=== PATIENT | female | born 1945 | race African-American/Black ===

== ENCOUNTER 2017-01-18 15:13 | Emergency (ER) | payer MEDICARE, MEDICAID ==
[~2017-01-18] VITALS: Ht 172.7 cm; Wt 70.0 kg
[2017-01-18] MEDS ORDERED: HYDROCODONE/ACETAMINOPHEN 5/325MG TABLET PO ONE (16:45)
[2017-01-18 17:22] LABS: BASOPHILS % 0.2 % (0.0-2.0); EOSINOPHILS % 0.1 % (0.0-5.0); HEMATOCRIT. 45.7 % (36.0-48.0); HEMOGLOBIN. 14.5 g/dL (12.0-16.0); LYMPHOCYTES % 10.4 % (20.0-50.0); MEAN CORPUSCULAR HEMOGLOBIN 25.9 pg (28.0-32.0); MEAN CORPUSCULAR VOLUME 81.5 fL (81.0-99.0); MEAN PLATELET VOLUME 8.1 fl (7.4-10.4); MONOCYTES % 13.3 % (2.0-8.0); PLATELET 197 x1000/uL (130-400); RED CELL DISTRIBUTION WIDTH 16.1 % (11.6-14.6)
[2017-01-18 17:28] LABS: CHLORIDE 98 mEq/L (98-107)
[2017-01-18 17:30] LABS: CARBON DIOXIDE 23 mEq/L (21-32)
[2017-01-18 17:35] LABS: CREATINE KINASE 691 IU/L (26-192)
[2017-01-18 17:38] LABS: TROPONIN I < 0.02 ng/mL (0.00-0.04)
[2017-01-18 19:30] LABS: INR 1.2; PARTIAL THROMBOPLASTIN TIME 25.9 sec (24.0-34.0); PROTHROMBIN TIME 12.3 sec
[2017-01-18 19:45] VITALS: BP 120/83
== END 2017-01-18 19:50 | disposition home or self-care (01) ==
LOC: ER 15:28
DX: G89.29 Other chronic pain (principal); M25.551 Pain in right hip; M25.552 Pain in left hip; R60.0 Localized edema; I10 Essential (primary) hypertension; Z88.0 Allergy status to penicillin; Z85.3 Personal history of malignant neoplasm of breast; Z96.642 Presence of left artificial hip joint
CPT/HCPCS: 36415; 71010; 73521; 80053; 82550; 82553; 83690; 83880; 84443; 84484; 85025; 85610; 85730; 93005; 93970; 93971; 99285

== ENCOUNTER 2017-01-26 14:52 | Inpatient (IN) | payer MEDICARE, MEDICAID ==
[~2017-01-26] VITALS: Ht 170.2 cm; Wt 96.8 kg
[2017-01-26] MEDS ORDERED: SODIUM CHLORIDE 0.9% 1,000 ML IV ONE ×2 (15:36→17:00)
[2017-01-26] MEDS ORDERED: NALOXONE HCL 0.4 MG/ML 1ML VIAL IV ONE (15:45)
[2017-01-26 16:10] LABS: HEMATOCRIT. 39.6 % (36.0-48.0); MEAN CORPUSCULAR HEMOGLOBIN 25.8 pg (28.0-32.0); MEAN CORPUSCULAR VOLUME 78.5 fL (81.0-99.0); MEAN PLATELET VOLUME 9.1 fl (7.4-10.4); PLATELET 215 x1000/uL (130-400); RED BLOOD CELL COUNT 5.04 mill/uL (4.2-5.4); RED CELL DISTRIBUTION WIDTH 15.8 % (11.6-14.6)
[2017-01-26 16:13] LABS: CHLORIDE 93 mEq/L (98-107)
[2017-01-26 16:14] LABS: INR 1.2; PROTHROMBIN TIME 12.8 sec
[2017-01-26 16:16] LABS: CARBON DIOXIDE 21 mEq/L (21-32)
[2017-01-26 16:48] LABS: PLATELET ESTIMATE NORMAL
[2017-01-26] MEDS ORDERED: HYDROMORPHONE HCL/PF 2MG/ML CPJ IV PRN (18:45)
[2017-01-26] MEDS ORDERED: ENOXAPARIN 40MG/0.4ML SYR SUBCUT SCH (18:45)
[2017-01-26] MEDS ORDERED: ONDANSETRON HCL 4MG/2ML VIAL IV PRN (18:45)
[2017-01-26] MEDS ORDERED: HYDROCODONE/ACETAMINOPHEN 5/325MG TABLET PO PRN (18:45)
[2017-01-26] MEDS ORDERED: LEVOFLOXACIN 500MG PREMIX 100 ML IV NR ×2 (19:00→21:00)
[2017-01-26 19:34] LABS: HEPATITIS B SURFACE ANTIGEN NEGATIVE
[2017-01-26] MEDS ORDERED: DEXT 5%/0.45% NACL KCL 20MEQ/L 1,000 ML IV SCH (20:00)
[2017-01-26 20:02] LABS: HEPATITIS B CORE AB IGM NEGATIVE
[2017-01-26 20:04] LABS: HEPATITIS A AB IGM NEGATIVE (NEGATIVE)
[2017-01-26 20:45] LABS: CLARITY URINE TURBID (CLEAR); COLOR URINE ORANGE (YELLOW); GLUCOSE URINE NEGATIVE (NEGATIVE); KETONES URINE NEGATIVE (NEGATIVE); LEUKOCYTE ESTERASE URINE 1+ (NEGATIVE); NITRITE URINE POSITIVE (NEGATIVE); OCCULT BLOOD URINE 3+ (NEGATIVE); PROTEIN URINE 1+ (NEGATIVE); SPECIFIC GRAVITY URINE 1.025 (1.005-1.030)
[2017-01-26] MEDS ORDERED: LEVOFLOXACIN 500MG PREMIX 100 ML IV SCH (20:45)
[2017-01-26] MEDS ORDERED: ENOXAPARIN 30MG/0.3ML SYR SUBCUT SCH (21:00)
[2017-01-26] MEDS ORDERED: METRONIDAZOLE 500 MG PREMIX 100 ML IV NR (21:00)
[2017-01-26] MEDS ORDERED: CEFTRIAXONE 1 G PREMIX 50 ML IV ONE (21:15)
[2017-01-26 23:18] LABS: CREATINE KINASE MB FRACTION 8.8 ng/mL (0.5-3.6); TROPONIN I < 0.02 ng/mL (0.00-0.04)
[2017-01-26] MEDS: METRONIDAZOLE 500 MG PREMIX 100 ML IV SCH (23:47)
[2017-01-27] VITALS (83 sets, daily range): BP systolic 80–142; BP diastolic 40–77
[2017-01-27] MEDS ORDERED: ACETAMINOPHEN 650MG SUPP PR NR (01:45)
[2017-01-27] MEDS ORDERED: DIATR MEGLU/DIATRIZOATE SOLN 30ML PO SCH (07:30)
[2017-01-27 08:05] LABS: BG BASE EXCESS -8.6 mmol/L (-2.0-2.0); BG DEOXYHEMOGLOBIN 1.5 % (0.0-5.0); BG FRACTION INSPIRED OXYGEN 28; BG HCO3 ACT 13.8 mmol/L (22.0-26.0); BG METHEMOGLOBIN 0.7 % (0.0-1.5); BG OXYGEN SATURATION 98.5 % (92.0-98.5); BG OXYHEMOGLOBIN 97.8 % (94.0-97.0); BG PH 7.434 (7.350-7.450); BG PO2 136.1 mmHg (75.0-100.0); BG SAMPLE SITE RIGHT BRACHIAL; BG TOTAL HEMOGLOBIN 11.5 g/dL (12.0-18.0); BG VENT MODE NASAL CANNULA
[2017-01-27] MEDS: IPRATROPIUM/ALBUTEROL 0.5-3(2.5)MG/3ML NEB HHN SCH ×4 (08:21→20:31)
[2017-01-27] MEDS: FAMOTIDINE 20MG/2ML VIAL IV SCH (08:27)
[2017-01-27] MEDS: METRONIDAZOLE 500 MG PREMIX 100 ML IV SCH ×3 (08:28→20:22)
[2017-01-27] MEDS: NOREPINEPHRINE 4 MG in DEXTROSE 5% WATER 250 ML IV PRN ×2 (09:48→16:51)
[2017-01-27 10:28] LABS: HEMATOCRIT. 33.5 % (36.0-48.0); HEMOGLOBIN. 10.8 g/dL (12.0-16.0); MEAN CORPUSCULAR HEMOGLOBIN 25.7 pg (28.0-32.0); MEAN CORPUSCULAR VOLUME 79.3 fL (81.0-99.0); MEAN PLATELET VOLUME 9.6 fl (7.4-10.4); PLATELET 158 x1000/uL (130-400); RED BLOOD CELL COUNT 4.23 mill/uL (4.2-5.4); RED CELL DISTRIBUTION WIDTH 16.2 % (11.6-14.6)
[2017-01-27 10:46] LABS: CARBON DIOXIDE 17 mEq/L (21-32); CHLORIDE 98 mEq/L (98-107); CREATINE KINASE MB FRACTION 6.2 ng/mL (0.5-3.6); TROPONIN I 0.02 ng/mL (0.00-0.04)
[2017-01-27] MEDS ORDERED: DEXT 5%/0.2% NACL KCL 20MEQ/L 1,000 ML IV SCH (11:00)
[2017-01-27 11:27] LABS: PHOSPHORUS 3.2 mg/dL (2.5-4.9)
[2017-01-27] MEDS: MORPHINE SULFATE 2 MG/ML CPJ (NOT FOR IM USE) IV PRN ×2 (11:58→16:57)
[2017-01-27] MEDS ORDERED: SODIUM ACETATE IV SCH (12:00)
[2017-01-27] MEDS ORDERED: DEXT IV SCH ×2 (12:00→12:30)
[2017-01-27] MEDS ORDERED: NACL KCL IV SCH ×2 (12:00→12:30)
[2017-01-27] MEDS ORDERED: SODIUM BICARBONATE IV SCH (12:30)
[2017-01-27 13:33] LABS: PLATELET ESTIMATE NORMAL
[2017-01-27] MEDS: LEVOFLOXACIN 250MG PREMIX 50 ML IV SCH (20:22)
[2017-01-27] MEDS: DEXT IV SCH (20:51)
[2017-01-27] MEDS: NACL IV SCH (20:51)
[2017-01-27] MEDS: POTASSIUM CHLORIDE IV SCH (20:51)
[2017-01-27] MEDS: SODIUM BICARBONATE IV SCH (20:51)
[2017-01-28] VITALS (98 sets, daily range): BP systolic 72–132; BP diastolic 32–74
[2017-01-28] MEDS: IPRATROPIUM/ALBUTEROL 0.5-3(2.5)MG/3ML NEB HHN SCH ×7 (00:18→23:40)
[2017-01-28] MEDS: NOREPINEPHRINE 4 MG in DEXTROSE 5% WATER 250 ML IV PRN ×2 (01:03→12:15)
[2017-01-28] MEDS: MORPHINE SULFATE 2 MG/ML CPJ (NOT FOR IM USE) IV PRN ×5 (01:07→23:34)
[2017-01-28] MEDS: POTASSIUM CHLORIDE IV SCH ×3 (04:53→20:31)
[2017-01-28] MEDS: NACL IV SCH ×3 (04:53→20:31)
[2017-01-28] MEDS: SODIUM BICARBONATE IV SCH ×3 (04:53→20:31)
[2017-01-28] MEDS: DEXT IV SCH ×3 (04:53→20:31)
[2017-01-28] MEDS: METRONIDAZOLE 500 MG PREMIX 100 ML IV SCH ×3 (05:04→21:01)
[2017-01-28 06:19] LABS: HEMATOCRIT. 29.9 % (36.0-48.0); HEMOGLOBIN. 9.9 g/dL (12.0-16.0); MEAN CORPUSCULAR HEMOGLOBIN 25.8 pg (28.0-32.0); MEAN CORPUSCULAR VOLUME 78.2 fL (81.0-99.0); MEAN PLATELET VOLUME 9.7 fl (7.4-10.4); PLATELET 103 x1000/uL (130-400); RED BLOOD CELL COUNT 3.82 mill/uL (4.2-5.4); RED CELL DISTRIBUTION WIDTH 16.1 % (11.6-14.6)
[2017-01-28 06:55] LABS: PLATELET ESTIMATE SLIGHTLY DECREASED
[2017-01-28 07:32] LABS: BG BASE EXCESS -1.2 mmol/L (-2.0-2.0); BG CARBOXYHEMOGLOBIN 0.6 % (0.5-1.5); BG DEOXYHEMOGLOBIN 1.1 % (0.0-5.0); BG FRACTION INSPIRED OXYGEN 28; BG METHEMOGLOBIN 0.7 % (0.0-1.5); BG OXYGEN SATURATION 98.9 % (92.0-98.5); BG OXYHEMOGLOBIN 97.6 % (94.0-97.0); BG PCO2 29.3 mmHg (35.0-45.0); BG PH 7.474 (7.350-7.450); BG PO2 130.3 mmHg (75.0-100.0); BG SAMPLE SITE RIGHT BRACHIAL; BG TOTAL HEMOGLOBIN 15.2 g/dL (12.0-18.0); BG VENT MODE NASAL CANNULA
[2017-01-28] MEDS: FAMOTIDINE 20MG/2ML VIAL IV SCH (09:45)
[2017-01-28] MEDS ORDERED: LIDOCAINE HCL 1% 20ML VIAL (Pyxis) INJ INFIL ONE (10:30)
[2017-01-28] MEDS ORDERED: VANCOMYCIN 1250MG in DEXTROSE 5% WATER 250ML IV SCH (11:00)
[2017-01-28] MEDS ORDERED: SODIUM CHLORIDE 0.9% 250 ML IV NR (11:15)
[2017-01-28] MEDS ORDERED: PHENYLEPHRINE 40 MG in DEXT 5% WATER 246 ML IV PRN (11:30)
[2017-01-28] MEDS ORDERED: SODIUM CHLORIDE 0.9% 250 ML IV ONE (11:30)
[2017-01-28] MEDS: CLINDAMYCIN 600 MG in DEXTROSE 5% WATER 50 ML IV SCH ×2 (11:48→20:32)
[2017-01-28] MEDS ORDERED: SODIUM CHLORIDE 0.9% 500 ML IV NR (12:00)
[2017-01-28] MEDS ORDERED: SODIUM CHLORIDE 0.9% 1000ML BAG (SEPSIS BOLUS) IV ONE (12:00)
[2017-01-28] MEDS ORDERED: SODIUM CHLORIDE 0.9% 500ML IV SOLN IV ONE (12:00)
[2017-01-28] MEDS ORDERED: DILTIAZEM HCL 5MG/ML 5ML VIAL IV SCH (12:30)
[2017-01-28] MEDS ORDERED: DIGOXIN 500MCG/2ML AMP IV SCH (13:00)
[2017-01-28] MEDS ORDERED: MAGNESIUM 1 G PREMIX 100 ML IV SCH (13:05)
[2017-01-28] MEDS ORDERED: DIGOXIN 500MCG/2ML AMP IV PRN (14:15)
[2017-01-28] MEDS: PHENYLEPHRINE 80 MG in DEXT 5% WATER 492 ML IV PRN ×2 (15:53→22:50)
[2017-01-28] MEDS: ACETAMINOPHEN 325MG TABLET PO PRN (18:59)
[2017-01-28] MEDS: LEVOFLOXACIN 250MG PREMIX 50 ML IV SCH (21:01)
[2017-01-28] MEDS: ENOXAPARIN 40MG/0.4ML SYR SUBCUT SCH (21:03)
[2017-01-29] VITALS (94 sets, daily range): BP systolic 82–124; BP diastolic 39–69
[2017-01-29] MEDS: SODIUM BICARBONATE IV SCH ×2 (03:05→08:56)
[2017-01-29] MEDS: POTASSIUM CHLORIDE IV SCH ×2 (03:05→08:56)
[2017-01-29] MEDS: DEXT IV SCH ×2 (03:05→08:56)
[2017-01-29] MEDS: NACL IV SCH ×2 (03:05→08:56)
[2017-01-29] MEDS: POLYVINYL ALCOHOL OPHTH DROPS 15ML BOTHEYE PRN (03:11)
[2017-01-29] MEDS: IPRATROPIUM/ALBUTEROL 0.5-3(2.5)MG/3ML NEB HHN SCH ×6 (03:47→23:39)
[2017-01-29] MEDS: CLINDAMYCIN 600 MG in DEXTROSE 5% WATER 50 ML IV SCH ×3 (04:04→20:10)
[2017-01-29] MEDS: METRONIDAZOLE 500 MG PREMIX 100 ML IV SCH ×3 (04:43→20:08)
[2017-01-29 05:38] LABS: HEMOGLOBIN. 9.9 g/dL (12.0-16.0); MEAN CORPUSCULAR HEMOGLOBIN 25.9 pg (28.0-32.0); MEAN CORPUSCULAR VOLUME 78.4 fL (81.0-99.0); RED BLOOD CELL COUNT 3.83 mill/uL (4.2-5.4); RED CELL DISTRIBUTION WIDTH 16.2 % (11.6-14.6)
[2017-01-29 06:02] LABS: CARBON DIOXIDE 22 mEq/L (21-32); CHLORIDE 92 mEq/L (98-107); PHOSPHORUS 1.7 mg/dL (2.5-4.9)
[2017-01-29 06:13] LABS: TROPONIN I 0.04 ng/mL (0.00-0.04)
[2017-01-29] MEDS: PHENYLEPHRINE 80 MG in DEXT 5% WATER 492 ML IV PRN ×3 (07:02→21:45)
[2017-01-29 07:38] LABS: BG BASE EXCESS 3.8 mmol/L (-2.0-2.0); BG DEOXYHEMOGLOBIN 1.7 % (0.0-5.0); BG FRACTION INSPIRED OXYGEN 32; BG HCO3 ACT 26.3 mmol/L (22.0-26.0); BG METHEMOGLOBIN 0.6 % (0.0-1.5); BG OXYGEN SATURATION 98.3 % (92.0-98.5); BG OXYHEMOGLOBIN 97.7 % (94.0-97.0); BG PCO2 32.3 mmHg (35.0-45.0); BG PH 7.528 (7.350-7.450); BG PO2 108.4 mmHg (75.0-100.0); BG SAMPLE SITE LEFT RADIAL; BG TOTAL HEMOGLOBIN 10.9 g/dL (12.0-18.0); BG VENT MODE NASAL CANNULA
[2017-01-29 07:48] LABS: PLATELET ESTIMATE DECREASED
[2017-01-29 07:49] LABS: MEAN PLATELET VOLUME 10.8 fl (7.4-10.4); PLATELET 54 x1000/uL (130-400)
[2017-01-29] MEDS: FAMOTIDINE 20MG/2ML VIAL IV SCH (08:24)
[2017-01-29] MEDS ORDERED: POTASSIUM PHOS M BASIC D BASIC IV SCH (09:00)
[2017-01-29] MEDS ORDERED: NACL IV SCH (09:00)
[2017-01-29] MEDS ORDERED: DEXT IV SCH (09:00)
[2017-01-29] MEDS: MORPHINE SULFATE 2 MG/ML CPJ (NOT FOR IM USE) IV PRN (09:14)
[2017-01-29] MEDS ORDERED: MAGNESIUM 2 G PREMIX 50 ML IV SCH (09:30)
[2017-01-29] MEDS ORDERED: VANCOMYCIN 1250MG in DEXTROSE 5% WATER 250ML IV SCH (11:00)
[2017-01-29] MEDS ORDERED: VANCOMYCIN 1 G PREMIX 200 ML IV SCH (11:00)
[2017-01-29] MEDS: BLOOD SUGAR DIAGNOSTIC STRIP TEST SCH ×3 (11:30→23:57)
[2017-01-29] MEDS: PANTOPRAZOLE SODIUM 40 MG/VIAL IV SCH (11:34)
[2017-01-29] MEDS: INSULIN LISPRO 100 UNITS/ML SUBCUT SCH ×2 (12:52→19:18)
[2017-01-29] MEDS: POTASSIUM-SODIUM PHOSPHATE POWDER PACKET NG SCH ×2 (13:26→20:07)
[2017-01-29] MEDS: BUDESONIDE 0.5MG/2ML NEB HHN SCH ×2 (15:11→20:11)
[2017-01-29] MEDS ORDERED: SODIUM HYPOCHLORITE 0.125% 473ML SOLUTION TOP SCH (18:30)
[2017-01-29] MEDS: DEXT 5%/0.45% NACL KCL 20MEQ/L 1,000 ML IV SCH (19:51)
[2017-01-29] MEDS: LEVOFLOXACIN 250MG PREMIX 50 ML IV SCH (20:08)
[2017-01-29] MEDS: ENOXAPARIN 40MG/0.4ML SYR SUBCUT SCH (21:00)
[2017-01-30] VITALS (103 sets, daily range): BP systolic 70–153; BP diastolic 41–79
[2017-01-30] MEDS: INSULIN LISPRO 100 UNITS/ML SUBCUT SCH ×4 (00:09→18:35)
[2017-01-30] MEDS: MORPHINE SULFATE 2 MG/ML CPJ (NOT FOR IM USE) IV PRN ×4 (00:27→23:24)
[2017-01-30] MEDS ORDERED: AMIODARONE HCL 150 MG in DEXT 5% WATER 100 ML IV SCH (03:15)
[2017-01-30] MEDS ORDERED: AMIODARONE HCL 150 MG in DEXT 5% WATER 100 ML IV NR (03:30)
[2017-01-30] MEDS ORDERED: AMIODARONE HCL 50 MG/ML IV ONE (03:30)
[2017-01-30] MEDS ORDERED: AMIODARONE HCL 900 MG in DEXT 5% WATER 500 ML IV PRN (03:45)
[2017-01-30] MEDS: IPRATROPIUM/ALBUTEROL 0.5-3(2.5)MG/3ML NEB HHN SCH ×5 (04:19→20:21)
[2017-01-30] MEDS: METRONIDAZOLE 500 MG PREMIX 100 ML IV SCH ×3 (05:05→20:41)
[2017-01-30] MEDS: VANCOMYCIN 1250MG in DEXTROSE 5% WATER 250ML IV SCH ×2 (05:05→23:41)
[2017-01-30] MEDS: CLINDAMYCIN 600 MG in DEXTROSE 5% WATER 50 ML IV SCH ×3 (05:05→20:41)
[2017-01-30] MEDS: DEXT 5%/0.45% NACL KCL 20MEQ/L 1,000 ML IV SCH ×2 (05:06→20:40)
[2017-01-30] MEDS: PHENYLEPHRINE 80 MG in DEXT 5% WATER 492 ML IV PRN ×3 (05:32→22:09)
[2017-01-30 05:43] LABS: CARBON DIOXIDE 20 mEq/L (21-32); CHLORIDE 92 mEq/L (98-107)
[2017-01-30] MEDS: BLOOD SUGAR DIAGNOSTIC STRIP TEST SCH ×3 (06:25→18:34)
[2017-01-30] MEDS ORDERED: LACTULOSE 20G/30ML UDC PO SCH (08:15)
[2017-01-30] MEDS: BUDESONIDE 0.5MG/2ML NEB HHN SCH ×2 (08:47→20:22)
[2017-01-30] MEDS: PANTOPRAZOLE SODIUM 40 MG/VIAL IV SCH (09:00)
[2017-01-30 09:24] LABS: BG CARBOXYHEMOGLOBIN 0.1 % (0.5-1.5); BG DEOXYHEMOGLOBIN 1.3 % (0.0-5.0); BG HCO3 ACT 19.3 mmol/L (22.0-26.0); BG METHEMOGLOBIN 0.6 % (0.0-1.5); BG OXYGEN SATURATION 98.7 % (92.0-98.5); BG PH 7.488 (7.350-7.450); BG PO2 137.3 mmHg (75.0-100.0); BG SAMPLE SITE LEFT RADIAL; BG TOTAL HEMOGLOBIN 10.7 g/dL (12.0-18.0); BG VENT MODE NASAL CANNULA
[2017-01-30 09:32] LABS: HEMATOCRIT. 31.3 % (36.0-48.0); HEMOGLOBIN. 10.3 g/dL (12.0-16.0); MEAN CORPUSCULAR HEMOGLOBIN 25.5 pg (28.0-32.0); MEAN CORPUSCULAR VOLUME 77.9 fL (81.0-99.0); MEAN PLATELET VOLUME 10.6 fl (7.4-10.4); RED BLOOD CELL COUNT 4.02 mill/uL (4.2-5.4); RED CELL DISTRIBUTION WIDTH 16.1 % (11.6-14.6)
[2017-01-30 09:39] LABS: PLATELET 27 x1000/uL (130-400)
[2017-01-30] MEDS: NOREPINEPHRINE 4 MG in DEXTROSE 5% WATER 250 ML IV PRN (10:36)
[2017-01-30 10:50] LABS: NUCLEATED RED BLOOD CELLS 4 /100 WBC; PLATELET ESTIMATE MARKEDLY DECREASED
[2017-01-30] MEDS: LANSOPRAZOLE 30MG DR CAPSULE GT SCH (11:17)
[2017-01-30] MEDS: LEVOFLOXACIN 250MG PREMIX 50 ML IV SCH (20:41)
[2017-01-31] VITALS (78 sets, daily range): BP systolic 70–155; BP diastolic 41–106
[2017-01-31] MEDS: IPRATROPIUM/ALBUTEROL 0.5-3(2.5)MG/3ML NEB HHN SCH ×6 (00:01→20:32)
[2017-01-31] MEDS: INSULIN LISPRO 100 UNITS/ML SUBCUT SCH ×5 (00:07→23:28)
[2017-01-31] MEDS: BLOOD SUGAR DIAGNOSTIC STRIP TEST SCH ×5 (00:08→23:28)
[2017-01-31] MEDS: POLYVINYL ALCOHOL OPHTH DROPS 15ML BOTHEYE PRN (01:20)
[2017-01-31] MEDS: ACETAMINOPHEN 325MG TABLET PO PRN ×2 (01:33→20:20)
[2017-01-31] MEDS: CLINDAMYCIN 600 MG in DEXTROSE 5% WATER 50 ML IV SCH ×3 (04:29→20:20)
[2017-01-31] MEDS: METRONIDAZOLE 500 MG PREMIX 100 ML IV SCH ×3 (04:31→21:11)
[2017-01-31 05:45] LABS: HEMATOCRIT. 29.5 % (36.0-48.0); HEMOGLOBIN. 9.8 g/dL (12.0-16.0); MEAN CORPUSCULAR HEMOGLOBIN 25.7 pg (28.0-32.0); MEAN CORPUSCULAR VOLUME 77.1 fL (81.0-99.0); MEAN PLATELET VOLUME 9.5 fl (7.4-10.4); RED BLOOD CELL COUNT 3.82 mill/uL (4.2-5.4); RED CELL DISTRIBUTION WIDTH 16.3 % (11.6-14.6)
[2017-01-31] MEDS: LANSOPRAZOLE 30MG DR CAPSULE GT SCH (06:05)
[2017-01-31] MEDS: DEXT 5%/0.45% NACL KCL 20MEQ/L 1,000 ML IV SCH (06:05)
[2017-01-31] MEDS: PHENYLEPHRINE 80 MG in DEXT 5% WATER 492 ML IV PRN (06:06)
[2017-01-31 06:13] LABS: CARBON DIOXIDE 21 mEq/L (21-32); CHLORIDE 92 mEq/L (98-107)
[2017-01-31 06:44] LABS: PLATELET ESTIMATE MARKEDLY DECREASED
[2017-01-31 06:45] LABS: PLATELET 21 x1000/uL (130-400)
[2017-01-31] MEDS ORDERED: ALBUMIN HUMAN 25GM/100ML (25%) IV SCH (08:00)
[2017-01-31] MEDS: SODIUM CHLORIDE 0.9% 1,000 ML IV SCH (08:20)
[2017-01-31] MEDS: BUDESONIDE 0.5MG/2ML NEB HHN SCH ×2 (08:21→20:32)
[2017-01-31] MEDS: MIDODRINE HCL 5MG TABLET NG SCH ×3 (10:00→17:00)
[2017-01-31 10:49] LABS: BG BASE EXCESS -0.2 mmol/L (-2.0-2.0); BG CARBOXYHEMOGLOBIN 0.3 % (0.5-1.5); BG DEOXYHEMOGLOBIN 2.1 % (0.0-5.0); BG FRACTION INSPIRED OXYGEN 28; BG HCO3 ACT 21.7 mmol/L (22.0-26.0); BG METHEMOGLOBIN 0.6 % (0.0-1.5); BG OXYGEN SATURATION 97.9 % (92.0-98.5); BG PCO2 26.5 mmHg (35.0-45.0); BG PH 7.532 (7.350-7.450); BG PO2 101.5 mmHg (75.0-100.0); BG SAMPLE SITE LEFT RADIAL; BG TOTAL HEMOGLOBIN 9.5 g/dL (12.0-18.0); BG VENT MODE NASAL CANNULA
[2017-01-31] MEDS: MORPHINE SULFATE 2 MG/ML CPJ (NOT FOR IM USE) IV PRN (13:20)
[2017-01-31] MEDS ORDERED: PHENYLEPHRINE 40 MG in SODIUM CHLORIDE 0.9% 250 ML IV PRN (15:30)
[2017-01-31] MEDS ORDERED: PHENYLEPHRINE 40 MG in DEXTROSE 5% WATER 250 ML IV PRN (15:45)
[2017-01-31] MEDS: PHENYLEPHRINE 40 MG in SODIUM CHLORIDE 0.9% 246 ML IV PRN (17:51)
[2017-01-31] MEDS: VANCOMYCIN 1250MG in DEXTROSE 5% WATER 250ML IV SCH (17:51)
[2017-01-31] MEDS: LEVOFLOXACIN 500MG PREMIX 100 ML IV SCH (21:11)
[2017-01-31] MEDS: HYDROCODONE/ACETAMINOPHEN 5/325MG TABLET PO PRN (22:43)
[2017-02-01] VITALS (63 sets, daily range): BP systolic 83–135; BP diastolic 37–65
[2017-02-01] MEDS: IPRATROPIUM/ALBUTEROL 0.5-3(2.5)MG/3ML NEB HHN SCH ×6 (00:47→20:23)
[2017-02-01] MEDS: MORPHINE SULFATE 4 MG/ML CPJ (NOT FOR IM USE) IV PRN ×3 (00:59→16:15)
[2017-02-01] MEDS: CLINDAMYCIN 600 MG in DEXTROSE 5% WATER 50 ML IV SCH (03:55)
[2017-02-01] MEDS: PHENYLEPHRINE 40 MG in SODIUM CHLORIDE 0.9% 246 ML IV PRN ×2 (03:59→15:00)
[2017-02-01] MEDS: METRONIDAZOLE 500 MG PREMIX 100 ML IV SCH ×3 (05:23→20:23)
[2017-02-01] MEDS: HYDROCODONE/ACETAMINOPHEN 5/325MG TABLET PO PRN ×2 (05:55→18:02)
[2017-02-01] MEDS: LANSOPRAZOLE 30MG DR CAPSULE GT SCH ×2 (05:55→18:02)
[2017-02-01] MEDS: SODIUM CHLORIDE 0.9% 1,000 ML IV SCH (05:57)
[2017-02-01] MEDS: INSULIN LISPRO 100 UNITS/ML SUBCUT SCH ×4 (06:00→23:54)
[2017-02-01] MEDS: BLOOD SUGAR DIAGNOSTIC STRIP TEST SCH ×4 (06:00→23:54)
[2017-02-01 06:04] LABS: PARTIAL THROMBOPLASTIN TIME 38.3 sec (24.0-34.0)
[2017-02-01 06:18] LABS: CARBON DIOXIDE 23 mEq/L (21-32); CHLORIDE 94 mEq/L (98-107); PHOSPHORUS 2.9 mg/dL (2.5-4.9)
[2017-02-01 07:12] LABS: HEMATOCRIT. 26.2 % (36.0-48.0); HEMOGLOBIN. 8.7 g/dL (12.0-16.0); MEAN CORPUSCULAR HEMOGLOBIN 25.9 pg (28.0-32.0); MEAN CORPUSCULAR VOLUME 77.6 fL (81.0-99.0); RED BLOOD CELL COUNT 3.38 mill/uL (4.2-5.4); RED CELL DISTRIBUTION WIDTH 16.1 % (11.6-14.6)
[2017-02-01] MEDS: BUDESONIDE 0.5MG/2ML NEB HHN SCH (08:21)
[2017-02-01 08:31] LABS: PLATELET ESTIMATE MARKEDLY DECREASED
[2017-02-01 08:33] LABS: MEAN PLATELET VOLUME 10.9 fl (7.4-10.4); PLATELET 29 x1000/uL (130-400)
[2017-02-01] MEDS ORDERED: NOREPINEPHRINE 4 MG in SODIUM CHLORIDE 0.9% 246 ML IV PRN ×2 (09:05→09:45)
[2017-02-01] MEDS: MIDODRINE HCL 5MG TABLET NG SCH ×3 (09:19→18:01)
[2017-02-01 09:29] LABS: TOTAL IRON BINDING CAPACITY 204 ug/dL (250-450)
[2017-02-01] MEDS ORDERED: MAGNESIUM 2 G PREMIX 50 ML IV NR (10:00)
[2017-02-01] MEDS ORDERED: CLINDAMYCIN 600 MG in SODIUM CHLORIDE 0.9% 50 ML IV SCH (12:00)
[2017-02-01] MEDS ORDERED: MAGNESIUM SULFATE 2 GM in SODIUM CHLORIDE 0.9% 100 ML IV NR (13:00)
[2017-02-01] MEDS: METOCLOPRAMIDE HCL 10MG/2ML VIAL IV SCH ×3 (13:02→23:47)
[2017-02-01] MEDS ORDERED: ALBUMIN HUMAN 25GM/100ML (25%) IV NR (13:30)
[2017-02-01] MEDS ORDERED: SORBITOL 70% SOLN 30ML PO NR (14:30)
[2017-02-01] MEDS: VANCOMYCIN 1,250 MG in SODIUM CHLORIDE 0.9% 250 ML IV SCH (15:09)
[2017-02-01] MEDS: LEVOFLOXACIN 500MG PREMIX 100 ML IV SCH (20:23)
[2017-02-01] MEDS ORDERED: SODIUM CHLORIDE 0.9% IV SCH (21:00)
[2017-02-01] MEDS ORDERED: LEVOFLOXACIN IV SCH (21:00)
[2017-02-02] VITALS (75 sets, daily range): BP systolic 70–156; BP diastolic 30–80
[2017-02-02] MEDS: IPRATROPIUM/ALBUTEROL 0.5-3(2.5)MG/3ML NEB HHN SCH ×6 (00:18→20:51)
[2017-02-02] MEDS: MORPHINE SULFATE 4 MG/ML CPJ (NOT FOR IM USE) IV PRN ×2 (01:58→08:22)
[2017-02-02] MEDS: METRONIDAZOLE 500 MG PREMIX 100 ML IV SCH ×3 (05:19→20:53)
[2017-02-02 05:26] LABS: BASOPHILS % 0.2 % (0.0-2.0); EOSINOPHILS % 0.2 % (0.0-5.0); HEMATOCRIT. 24.2 % (36.0-48.0); HEMOGLOBIN. 8.2 g/dL (12.0-16.0); LYMPHOCYTES % 12.8 % (20.0-50.0); MEAN PLATELET VOLUME 11.3 fl (7.4-10.4); MONOCYTES % 5.5 % (2.0-8.0); NEUTROPHILS % 81.3 % (40.0-76.0); RED BLOOD CELL COUNT 3.15 mill/uL (4.2-5.4); RED CELL DISTRIBUTION WIDTH 15.9 % (11.6-14.6)
[2017-02-02 05:41] LABS: CARBON DIOXIDE 25 mEq/L (21-32); CHLORIDE 99 mEq/L (98-107)
[2017-02-02] MEDS: LANSOPRAZOLE 30MG DR CAPSULE GT SCH ×2 (05:42→17:17)
[2017-02-02] MEDS: METOCLOPRAMIDE HCL 10MG/2ML VIAL IV SCH ×4 (05:51→23:32)
[2017-02-02] MEDS: VANCOMYCIN 1,250 MG in SODIUM CHLORIDE 0.9% 250 ML IV SCH ×2 (05:51→23:36)
[2017-02-02] MEDS: INSULIN LISPRO 100 UNITS/ML SUBCUT SCH ×3 (06:00→16:53)
[2017-02-02] MEDS: BLOOD SUGAR DIAGNOSTIC STRIP TEST SCH ×3 (06:01→17:17)
[2017-02-02] MEDS: PHENYLEPHRINE 40 MG in SODIUM CHLORIDE 0.9% 246 ML IV PRN (06:23)
[2017-02-02] MEDS ORDERED: LACTULOSE 20G/30ML UDC PO NR (08:00)
[2017-02-02] MEDS ORDERED: MAGNESIUM 1 G PREMIX 100 ML IV NR (08:00)
[2017-02-02] MEDS ORDERED: ALBUMIN HUMAN 25GM/100ML (25%) IV NR (08:00)
[2017-02-02 08:56] LABS: PLATELET 19 x1000/uL (130-400)
[2017-02-02] MEDS: MIDODRINE HCL 5MG TABLET NG SCH ×2 (10:00→17:17)
[2017-02-02 10:07] LABS: HLA CLASS 1 ANTIBODY Negative (Negative); IIb/IIIa ANTIBODY Negative (Negative); Ia/IIa ANTIBODY Negative (Negative); Ib/IX ANTIBODY Negative (Negative)
[2017-02-02] MEDS ORDERED: SODIUM CHLORIDE 0.9% 10ML VIAL ONE (11:09)
[2017-02-02] MEDS ORDERED: SIMETHICONE 40 MG/0.6 ML 30ML ONE ×2 (11:09→14:32)
[2017-02-02] MEDS: DEXTROSE 50% WATER 50ML SYRINGE IV PRN ×2 (12:55→23:31)
[2017-02-02] MEDS ORDERED: MIDAZOLAM HCL 5 MG/5 ML VIAL ONE (14:32)
[2017-02-02] MEDS ORDERED: FENTANYL CITRATE/PF 50MCG/ML 2ML VIAL ONE (14:32)
[2017-02-02] MEDS ORDERED: MIDAZOLAM HCL 5 MG/5 ML VIAL IV PRN (14:50)
[2017-02-02 18:05] LABS: BG BASE EXCESS 2.6 mmol/L (-2.0-2.0); BG CARBOXYHEMOGLOBIN 0.4 % (0.5-1.5); BG DEOXYHEMOGLOBIN 10.6 % (0.0-5.0); BG FRACTION INSPIRED OXYGEN 100; BG HCO3 ACT 25.8 mmol/L (22.0-26.0); BG METHEMOGLOBIN 0.3 % (0.0-1.5); BG OXYGEN SATURATION 89.3 % (92.0-98.5); BG OXYHEMOGLOBIN 88.7 % (94.0-97.0); BG PCO2 34.1 mmHg (35.0-45.0); BG PH 7.497 (7.350-7.450); BG PO2 56.7 mmHg (75.0-100.0); BG SAMPLE SITE LEFT RADIAL; BG TOTAL HEMOGLOBIN 8.7 g/dL (12.0-18.0); BG VENT MODE MASK - NRB
[2017-02-02] MEDS ORDERED: IPRATROPIUM/ALBUTEROL 0.5-3(2.5)MG/3ML NEB HHN PRN (19:00)
[2017-02-02] MEDS: LEVOFLOXACIN 500MG PREMIX 100 ML IV SCH (20:53)
[2017-02-02] MEDS ORDERED: LACTULOSE 20G/30ML UDC PO PRN (21:00)
[2017-02-02] MEDS ORDERED: PROPOFOL 10MG/ML 100ML 100 ML IV PRN (21:15)
[2017-02-02] MEDS ORDERED: NOREPINEPHRINE 4 MG in DEXT 5% WATER 246 ML IV PRN (22:30)
[2017-02-02 23:49] LABS: BG BASE EXCESS -1.5 mmol/L (-2.0-2.0); BG DEOXYHEMOGLOBIN 2.2 % (0.0-5.0); BG FRACTION INSPIRED OXYGEN 100; BG METHEMOGLOBIN 0.2 % (0.0-1.5); BG OXYGEN SATURATION 97.8 % (92.0-98.5); BG OXYHEMOGLOBIN 97.6 % (94.0-97.0); BG PCO2 27.3 mmHg (35.0-45.0); BG PH 7.503 (7.350-7.450); BG SAMPLE SITE LEFT RADIAL; BG TIDAL VOLUME(mL) 500 mL; BG TOTAL HEMOGLOBIN 9.1 g/dL (12.0-18.0); BG VENT MODE VENT - A/C; BG VENT RATE 14 set
[2017-02-03] VITALS (106 sets, daily range): BP systolic 52–141; BP diastolic 35–107
[2017-02-03] MEDS: BLOOD SUGAR DIAGNOSTIC STRIP TEST SCH ×5 (00:24→23:33)
[2017-02-03] MEDS: PHENYLEPHRINE 40 MG in SODIUM CHLORIDE 0.9% 246 ML IV PRN ×5 (00:25→17:13)
[2017-02-03] MEDS: IPRATROPIUM/ALBUTEROL 0.5-3(2.5)MG/3ML NEB HHN SCH ×6 (00:33→20:00)
[2017-02-03] MEDS: MIDODRINE HCL 5MG TABLET NG SCH ×3 (01:36→17:27)
[2017-02-03] MEDS ORDERED: NOREPINEPHRINE 4 MG in SODIUM CHLORIDE 0.9% 250 ML IV PRN (04:30)
[2017-02-03 05:19] LABS: BASOPHILS % 0.3 % (0.0-2.0); EOSINOPHILS % 0.1 % (0.0-5.0); HEMATOCRIT. 24.6 % (36.0-48.0); HEMOGLOBIN. 8.2 g/dL (12.0-16.0); LYMPHOCYTES % 15.5 % (20.0-50.0); MEAN CORPUSCULAR HEMOGLOBIN 25.9 pg (28.0-32.0); MEAN CORPUSCULAR VOLUME 77.3 fL (81.0-99.0); MEAN PLATELET VOLUME 10.4 fl (7.4-10.4); MONOCYTES % 7.4 % (2.0-8.0); NEUTROPHILS % 76.7 % (40.0-76.0); PLATELET 107 x1000/uL (130-400); RED BLOOD CELL COUNT 3.18 mill/uL (4.2-5.4); RED CELL DISTRIBUTION WIDTH 15.9 % (11.6-14.6)
[2017-02-03 05:42] LABS: CARBON DIOXIDE 23 mEq/L (21-32); CHLORIDE 101 mEq/L (98-107)
[2017-02-03] MEDS: INSULIN LISPRO 100 UNITS/ML SUBCUT SCH ×5 (06:00→23:33)
[2017-02-03] MEDS: METOCLOPRAMIDE HCL 10MG/2ML VIAL IV SCH ×3 (06:09→17:26)
[2017-02-03] MEDS: LANSOPRAZOLE 30MG DR CAPSULE GT SCH ×2 (06:09→17:23)
[2017-02-03 07:01] LABS: BG BASE EXCESS -0.1 mmol/L (-2.0-2.0); BG CARBOXYHEMOGLOBIN 0.3 % (0.5-1.5); BG DEOXYHEMOGLOBIN 7.3 % (0.0-5.0); BG HCO3 ACT 21.5 mmol/L (22.0-26.0); BG METHEMOGLOBIN 0.4 % (0.0-1.5); BG OXYGEN SATURATION 92.6 % (92.0-98.5); BG PCO2 24.3 mmHg (35.0-45.0); BG PH 7.564 (7.350-7.450); BG PO2 61.6 mmHg (75.0-100.0); BG SAMPLE SITE LEFT RADIAL; BG TIDAL VOLUME(mL) 500 mL; BG TOTAL HEMOGLOBIN 8.3 g/dL (12.0-18.0); BG VENT MODE VENT - A/C; BG VENT RATE 12 set
[2017-02-03] MEDS: POLYVINYL ALCOHOL OPHTH DROPS 15ML BOTHEYE PRN (09:11)
[2017-02-03] MEDS ORDERED: SODIUM HYPOCHLORITE 0.125% 473ML SOLUTION TOP SCH (09:30)
[2017-02-03] MEDS ORDERED: SODIUM HYPOCHLORITE 0.125% 473ML SOLUTION TOP PRN (09:45)
[2017-02-03] MEDS: DEXTROSE 50% WATER 50ML SYRINGE IV PRN ×3 (11:14→23:31)
[2017-02-03] MEDS ORDERED: ACETYLCYSTEINE 100MG/ML 10% VIAL 4ML INH SCH ×2 (12:00)
[2017-02-03] MEDS: ACETAMINOPHEN 325MG TABLET PO PRN (12:17)
[2017-02-03] MEDS: MORPHINE SULFATE 4 MG/ML CPJ (NOT FOR IM USE) IV PRN (12:28)
[2017-02-03] MEDS: METRONIDAZOLE 500MG TABLET PO SCH ×2 (13:49→21:49)
[2017-02-03] MEDS: NOREPINEPHRINE 4 MG in SODIUM CHLORIDE 0.9% 250 ML IV PRN ×2 (13:53→17:13)
[2017-02-03 14:42] LABS: HEMATOCRIT 24.2 % (36.0-48.0); HEMOGLOBIN 7.9 g/dL (12.0-16.0)
[2017-02-03] MEDS: CEFEPIME 1,000 MG in DEXTROSE 5% WATER 50 ML IV SCH (14:58)
[2017-02-03] MEDS ORDERED: PHENYLEPHRINE 80 MG in DEXT 5% WATER 492 ML IV PRN ×2 (19:30→20:00)
[2017-02-03 20:03] LABS: HEMATOCRIT. 35.1 % (36.0-48.0); HEMOGLOBIN. 11.4 g/dL (12.0-16.0); MEAN CORPUSCULAR HEMOGLOBIN 26.6 pg (28.0-32.0); MEAN CORPUSCULAR VOLUME 82.2 fL (81.0-99.0); RED BLOOD CELL COUNT 4.27 mill/uL (4.2-5.4); RED CELL DISTRIBUTION WIDTH 16.2 % (11.6-14.6)
[2017-02-03] MEDS ORDERED: VANCOMYCIN 1,250 MG in SODIUM CHLORIDE 0.9% 250 ML IV SCH (21:00)
[2017-02-03 21:05] LABS: NUCLEATED RED BLOOD CELLS 1 /100 WBC
[2017-02-03 21:06] LABS: PLATELET 120 x1000/uL (130-400)
[2017-02-03 21:16] LABS: PLATELET ESTIMATE SLIGHTLY DECREASED
[2017-02-03] MEDS: DOPAMINE 400MG PREMIX 250 ML IV PRN (22:30)
[2017-02-03] MEDS ORDERED: NOREPINEPHRINE 32 MG in DEXT 5% WATER 468 ML IV PRN (23:00)
[2017-02-04] VITALS (15 sets, daily range): BP systolic 65–108; BP diastolic 35–54
[2017-02-04] MEDS: DEXTROSE 50% WATER 50ML SYRINGE IV PRN ×2 (00:24→03:43)
[2017-02-04] MEDS: METOCLOPRAMIDE HCL 10MG/2ML VIAL IV SCH (00:36)
[2017-02-04] MEDS: MIDODRINE HCL 5MG TABLET NG SCH (01:43)
[2017-02-04] MEDS: CEFEPIME 1,000 MG in DEXTROSE 5% WATER 50 ML IV SCH (03:28)
[2017-02-04] MEDS: DOPAMINE 400MG PREMIX 250 ML IV PRN (03:50)
[2017-02-04] MEDS ORDERED: SODIUM BICARBONATE 7.5% 0.9 MEQ/ML 50ML SYR IV ONE (04:00)
[2017-02-04] MEDS ORDERED: DEXTROSE 50% WATER 50ML SYRINGE IV ONE (04:00)
[2017-02-04] MEDS ORDERED: CALCIUM CHLORIDE 1GM/10ML SYR IV ONE (04:00)
[2017-02-04] MEDS ORDERED: SUCCINYLCHOLINE CHLORIDE 200MG/10ML VIAL IV ONE (04:00)
[2017-02-04] MEDS ORDERED: ETOMIDATE 2MG/ML 10ML VIAL IV ONE (04:00)
[2017-02-04] MEDS ORDERED: VECURONIUM BROMIDE 10 MG/VIAL IV ONE (04:00)
[2017-02-04] MEDS ORDERED: STERILE WATER FOR INJECTION 10ML VIAL ONE (04:00)
[2017-02-04] MEDS ORDERED: EPINEPHRINE 0.1MG/ML (1:10,000) 10ML SYR ONE (04:00)
== END 2017-02-04 04:33 | disposition expired | DRG 853 ==
LOC: ER 14:58 → MICUSO 17:28 → ENRESERV 19:39 → CANRESERV 19:39 → ENRESERV 20:16 → CANRESERV 20:16 → EDBEDREQSVC 21:31 → ENRESERV 01-27 01:51
PROVIDERS: ADMIT Internal Medicine Geriatric Medicine; ATTEND Internal Medicine Geriatric Medicine
PROC: 0JDM0ZZ Extraction of Left Upper Leg Subcutaneous Tissue and Fascia, Open Approach (ICD-10-PCS; 2017-01-29)
PROC: 5A1945Z Respiratory Ventilation, 24-96 Consecutive Hours (ICD-10-PCS; 2017-02-02)
PROC: 0DH63UZ Insertion of Feeding Device into Stomach, Percutaneous Approach (ICD-10-PCS; 2017-02-02)
PROC: 30233R1 Transfusion of Nonautologous Platelets into Peripheral Vein, Percutaneous Approach (ICD-10-PCS; 2017-02-02)
PROC: 0BH17EZ Insertion of Endotracheal Airway into Trachea, Via Natural or Artificial Opening (ICD-10-PCS; 2017-02-02)
PROC: 05H533Z Insertion of Infusion Device into Right Subclavian Vein, Percutaneous Approach (ICD-10-PCS; 2017-02-03)
PROC: B546ZZA Ultrasonography of Right Subclavian Vein, Guidance (ICD-10-PCS; 2017-02-03)
PROC: 30233N1 Transfusion of Nonautologous Red Blood Cells into Peripheral Vein, Percutaneous Approach (ICD-10-PCS; 2017-02-03)
PROC: 5A12012 Performance of Cardiac Output, Single, Manual (ICD-10-PCS; principal; 2017-02-04)
DX: A41.9 Sepsis, unspecified organism (principal); E43 Unspecified severe protein-calorie malnutrition; D65 Disseminated intravascular coagulation [defibrination syndrome]; J96.00 Acute respiratory failure, unspecified whether with hypoxia or hypercapnia; N17.0 Acute kidney failure with tubular necrosis; I46.9 Cardiac arrest, cause unspecified; J18.9 Pneumonia, unspecified organism; G92 Toxic encephalopathy; R65.21 Severe sepsis with septic shock; E87.4 Mixed disorder of acid-base balance; I50.22 Chronic systolic (congestive) heart failure; L02.416 Cutaneous abscess of left lower limb; I42.9 Cardiomyopathy, unspecified; M86.9 Osteomyelitis, unspecified; E87.1 Hypo-osmolality and hyponatremia; I47.1 Supraventricular tachycardia; J44.0 Chronic obstructive pulmonary disease with (acute) lower respiratory infection; J98.11 Atelectasis; K56.7 Ileus, unspecified; M62.82 Rhabdomyolysis; L89.229 Pressure ulcer of left hip, unspecified stage; I11.0 Hypertensive heart disease with heart failure; I48.0 Paroxysmal atrial fibrillation; E86.0 Dehydration; D58.2 Other hemoglobinopathies; E11.22 Type 2 diabetes mellitus with diabetic chronic kidney disease; B95.61 Methicillin susceptible Staphylococcus aureus infection as the cause of diseases classified elsewhere; D50.9 Iron deficiency anemia, unspecified; E11.65 Type 2 diabetes mellitus with hyperglycemia; E11.69 Type 2 diabetes mellitus with other specified complication; E83.39 Other disorders of phosphorus metabolism; E83.42 Hypomagnesemia; F03.90 Unspecified dementia, unspecified severity, without behavioral disturbance, psychotic disturbance, mood disturbance, and anxiety; F17.200 Nicotine dependence, unspecified, uncomplicated; I25.10 Atherosclerotic heart disease of native coronary artery without angina pectoris; I35.0 Nonrheumatic aortic (valve) stenosis; I45.9 Conduction disorder, unspecified; I89.0 Lymphedema, not elsewhere classified; K29.70 Gastritis, unspecified, without bleeding; K80.20 Calculus of gallbladder without cholecystitis without obstruction; N30.90 Cystitis, unspecified without hematuria; R13.10 Dysphagia, unspecified; Z96.642 Presence of left artificial hip joint; Z86.73 Personal history of transient ischemic attack (TIA), and cerebral infarction without residual deficits; Z90.11 Acquired absence of right breast and nipple; Z90.13 Acquired absence of bilateral breasts and nipples; Z88.0 Allergy status to penicillin; Z85.3 Personal history of malignant neoplasm of breast; Z74.01 Bed confinement status; Z68.33 Body mass index [BMI] 33.0-33.9, adult
CPT/HCPCS: 31500; 36415; 36569; 36600; 51702; 71010; 71250; 74000; 74176; 76604; 76705; 76937; 78580; 80048; 80053; 80202; 81001; 82375; 82553; 82570; 82805; 82962; 83540; 83550; 83605; 83735; 83880; 84100; 84132; 84300; 84443; 84478; 84484; 85014; 85018; 85025; 85379; 85384; 85610; 85730; 86022; 86300; 86705; 86709; 86803; 86850; 86900; 86920; 87040; 87070; 87075; 87077; 87086; 87205; 87340; 92610; 93005; 93306; 93970; 94002; 94003; 94640; 94660; 94667; 96361; 96365; 96375; 97162; 99285; A4216; C1725; C1769; C9113; J0171; J0282; J0330; J0692; J1160; J1265; J1650; J1815; J1956; J2250; J2270; J2310; J2370; J2704; J2765; J3010; J3370; J3475; J3480; J3490; J7030; J7040; J7042; J7050; J7060; J7608; J7620; J7626; P9016; P9034; P9047; A4315